=== PATIENT | male | born 1960 | race Caucasian/White ===

== ENCOUNTER 2017-05-27 18:59 | Emergency (ER) | payer BC, OTHER ==
[2017-05-27 19:16] VITALS: BP 115/72; PULSE 75; RESP 18; TEMP 97.8
[2017-05-27] MEDS ORDERED: DIPH,PERTUS(ACELL)TETVAC-LF 0.5 ML VIAL IM ONE (19:30)
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
--- NOTE | 2017-05-27 19:55 | XR ---
EXAMINATION TYPE: XR hand complete RT DATE OF EXAM: 05/27/2017 COMPARISON: NONE HISTORY: 56-year-old male with pain and swelling with redness, laceration on the right are a few days ago TECHNIQUE: 3 views FINDINGS: No acute fracture, subluxation, or dislocation. Scattered mild osteophytic changes in the DIP joints. There is some soft tissue swelling noted along the dorsum of the hand. IMPRESSION: No acute osseous abnormality seen. Scattered mild osteoarthritic changes. Dorsal soft tissue swelling .
[2017-05-27] MEDS ORDERED: ceFAZolin 1,000 MG VIAL IM STA (20:00)
== END 2017-05-27 20:17 | disposition home or self-care (01) ==
LOC: EC 18:59
DX: S61.411A Laceration without foreign body of right hand, initial encounter (principal); L03.113 Cellulitis of right upper limb; E78.5 Hyperlipidemia, unspecified; I10 Essential (primary) hypertension; I25.10 Atherosclerotic heart disease of native coronary artery without angina pectoris; Z87.891 Personal history of nicotine dependence; Z79.82 Long term (current) use of aspirin; Z79.899 Other long term (current) drug therapy; Z88.0 Allergy status to penicillin; Z88.5 Allergy status to narcotic agent; Z91.040 Latex allergy status; Z23 Encounter for immunization; W29.8XXA Contact with other powered hand tools and household machinery, initial encounter; Y92.69 Other specified industrial and construction area as the place of occurrence of the external cause; Y99.0 Civilian activity done for income or pay
CPT/HCPCS: 73130; 90715; 99283; 90471; 96372; J0690

== ENCOUNTER → 2019-10-03 | Outpatient (CLI) | payer BC ==
--- NOTE | 2019-10-03 13:00 | US ---
EXAMINATION TYPE: US renals and bladder DATE OF EXAM: 10/03/2019 COMPARISON: NONE CLINICAL HISTORY: R31.9 Hematuria, unspecified, R30.0 Dysuria. Pain and hematuria EXAM MEASUREMENTS: Right Kidney: 12.9 x 5.5 x 5.0 cm Left Kidney: 11.5 x 6.8 x 5.0 cm Right Kidney: wnl Left Kidney: wnl Bladder: wnl Bilateral Jets seen: Yes IMPRESSION: 1. Normal renal ultrasound
== END | disposition home or self-care (01) ==
LOC: RADUSWWP 07:25
PROVIDERS: ATTEND Family Medicine
DX: R31.9 Hematuria, unspecified (principal); R30.0 Dysuria
CPT/HCPCS: 76770

== ENCOUNTER → 2019-12-06 | Outpatient (CLI) | payer BC ==
--- NOTE | 2019-12-06 08:23 | US ---
EXAMINATION TYPE: US gallbladder DATE OF EXAM: 12/06/2019 COMPARISON: NONE CLINICAL HISTORY: R10.11 Right upper quad pain, R13.10 dysphagia. EXAM MEASUREMENTS: Liver Length: 15.5 cm Gallbladder Wall: 0.2 cm CBD: 0.3 cm Right Kidney: 12.7 x 5.5 x 5.1 cm Patient of large body habitus. Pancreas: Obscured by bowel gas Liver: wnl Gallbladder: wnl Evidence for sonographic Long's sign: no CBD: wnl Right Kidney: No distinct abnormality seen. IMPRESSION: Unremarkable study
--- NOTE | 2019-12-06 11:07 | FL ---
ESOPHOGRAM. HISTORY: Dysphagia Esophagram was performed per the air contrast technique. The patient swallowed barium and effervesce nt crystals without difficulty or delay. Esophageal peristalsis and motility appear to be within normal limits. There is no evidence for filling defect, mass or diverticulum. No hiatal hernia seen. IMPRESSION: Unremarkable study.
== END | disposition home or self-care (01) ==
LOC: RADUSWWP 07:26
PROVIDERS: ATTEND Surgery Plastic and Reconstructive Surgery
DX: R13.10 Dysphagia, unspecified (principal); R10.11 Right upper quadrant pain; R94.5 Abnormal results of liver function studies; K21.9 Gastro-esophageal reflux disease without esophagitis
CPT/HCPCS: 74220; 76705